=== PATIENT | male | born 1985 | race Caucasian/White ===

== ENCOUNTER 2019-02-23 11:01 | Inpatient (IN) | payer OTHER ==
[~2019-02-23] VITALS: Ht 200.7 cm; Wt 104.5 kg
[2019-02-23 11:41] LABS: BASOPHILS % (AUTO) 0.5 % (0.0-2.0); EOSINOPHILS % (AUTO) 0.8 % (1.0-6.0); HEMOGLOBIN 13.9 g/dL (13.5-17.5); LYMPHOCYTES # (AUTO) 1.9 K/uL (1.0-4.8); LYMPHOCYTES % (AUTO) 20.5 % (22.0-44.0); MEAN CORPUSCULAR HEMOGLOBIN 28.5 pg (26.0-34.0); MEAN CORPUSCULAR HGB CONC 33.9 G/dL (31.0-37.0); MEAN CORPUSCULAR VOLUME 84 fL (80-100); MONOCYTES # (AUTO) 0.7 K/uL (0.1-1.0); MONOCYTES % (AUTO) 7.2 % (2.0-9.0); NEUTROPHILS # (AUTO) 6.5 K/uL (1.8-7.7); PLATELET COUNT (AUTO) 386 K/uL (150-450); RED BLOOD CELL COUNT(AUTO) 4.88 MIL/uL (4.50-5.90)
[2019-02-23 11:47] LABS: ANION GAP 8 mmol/L (8-16); CALCIUM, TOTAL 9.1 mg/dL (8.8-10.5); CARBON DIOXIDE 28 mmol/L (22-29); CHLORIDE 104 mmol/L (98-107); GLOMERULAR FILTR. RATE CALC > 60 mL/min (>60); GLUCOSE,RANDOM 95 mg/dL (70-110); POTASSIUM 4.2 mmol/L (3.5-5.1); SODIUM SERUM 140 mmol/L (136-145); UREA NITROGEN, BLOOD 8 mg/dL (7-18)
[2019-02-23 11:49] LABS: AMPHET/METH SCREEN,URINE NEGATIVE (NEGATIVE); BARBITURATE SCREEN, URINE NEGATIVE (NEGATIVE); BENZODIAZEPINES SCREEN,URINE NEGATIVE (NEGATIVE); CANNABINOID SCREEN,URINE POSITIVE (NEGATIVE); COCAINE SCREEN,URINE NEGATIVE (NEGATIVE); METHADONE SCREEN, URINE NEGATIVE (NEGATIVE); OPIATE SCREEN,URINE NEGATIVE (NEGATIVE); PHENCYCLIDINE SCREEN,URINE NEGATIVE (NEGATIVE)
[2019-02-23 11:53] LABS: ALANINE AMINOTRANSFERASE 62 U/L (12-78); ALBUMIN 3.1 g/dL (3.4-5.0); ALKALINE PHOSPHATASE 111 U/L (46-116); ASPARTATE AMINOTRANSFERASE 38 U/L (15-37); BILIRUBIN,TOTAL 0.5 mg/dL (0.1-1.0); TOTAL PROTEIN, SERUM 7.6 g/dL (6.4-8.2)
[2019-02-23] MEDS ORDERED: SULFAMETHOX/TRIMETH DS 800-160 MG/TABLET PO ONE (12:30)
[2019-02-23] MEDS ORDERED: 0.9% SODIUM CHLORIDE 10 ML SYRINGE IVP PRN (12:45)
[2019-02-23] MEDS ORDERED: ACETAMINOPHEN 325 MG TABLET PO PRN (12:45)
[2019-02-23] MEDS ORDERED: GuaiFENesin/D-METHORPHAN [SUGAR-FREE] 200-20MG/10 ML SYRUP UDCUP PO PRN (13:00)
[2019-02-23] MEDS ORDERED: LOPERAMIDE HCL 2 MG CAPSULE PO PRN (13:00)
[2019-02-23] MEDS ORDERED: CloNIDine HCL 0.1 MG TABLET PO PRN (13:00)
[2019-02-23] MEDS ORDERED: ONDANSETRON HCL 4 MG TABLET PO PRN (13:00)
[2019-02-23] MEDS ORDERED: IBUPROFEN 400 MG TABLET PO PRN (13:00)
[2019-02-23] MEDS ORDERED: MAGNESIUM HYDROXIDE SUSPENSION 30 ML UDCUP PO PRN (13:00)
[2019-02-23] MEDS ORDERED: NICOTINE 14 MG/24 HOUR PATCH TD PRN (13:00)
[2019-02-23] MEDS ORDERED: MAG HYDROX/AL HYDROX/SIMETH ES 30 ML SUSPENSION UDCUP PO PRN (13:00)
[2019-02-23] MEDS ORDERED: ALBUTEROL SULFATE HFA 90 MCG/PUFF 8 GM INHALER IH PRN (13:00)
[2019-02-23] MEDS ORDERED: PETROLATUM,WHITE 28 GM JELLY TP PRN (13:00)
[2019-02-23 13:32] VITALS: BP 129/79
[2019-02-23 16:00] VITALS: BP 139/82
[2019-02-23] MEDS ORDERED: DiphenhydrAMINE HCL 50 MG/ML VIAL IM ONE (16:15)
[2019-02-23] MEDS ORDERED: LORazepam 2 MG/ML VIAL ONE (16:15)
[2019-02-23] MEDS ORDERED: HALOPERIDOL LACTATE 5 MG/ML VIAL IM ONE (16:15)
[2019-02-23] MEDS ORDERED: HALOPERIDOL LACTATE 5 MG/ML VIAL ONE (16:15)
[2019-02-23] MEDS ORDERED: DiphenhydrAMINE HCL 50 MG/ML VIAL ONE (16:15)
[2019-02-23] MEDS ORDERED: LORazepam 2 MG/ML VIAL IM ONE (16:15)
[2019-02-23] MEDS: CEPHALEXIN MONOHYDRATE 500 MG CAPSULE PO SCH ×2 (16:23→23:16)
[2019-02-23 17:39] LABS: APPEARANCE,URINE CLEAR (CLEAR); BILIRUBIN,URINE NEGATIVE (NEGATIVE); GLUCOSE, URINE (UA) NEGATIVE (NEGATIVE); KETONES,URINE NEGATIVE (NEGATIVE); LEUKOCYTE ESTERASE ,URINE NEGATIVE (NEGATIVE); NITRATE,URINE NEGATIVE (NEGATIVE); OCCULT BLOOD,URINE NEGATIVE (NEGATIVE); PH,URINE 7.5 (5.0-8.0); PROTEIN,URINE NEGATIVE (NEGATIVE)
[2019-02-23 17:44] LABS: AMPHET/METH SCREEN,URINE NEGATIVE (NEGATIVE); BARBITURATE SCREEN, URINE NEGATIVE (NEGATIVE); BENZODIAZEPINES SCREEN,URINE NEGATIVE (NEGATIVE); CANNABINOID SCREEN,URINE NEGATIVE (NEGATIVE); COCAINE SCREEN,URINE NEGATIVE (NEGATIVE); METHADONE SCREEN, URINE NEGATIVE (NEGATIVE); OPIATE SCREEN,URINE NEGATIVE (NEGATIVE)
[2019-02-23 17:45] LABS: PHENCYCLIDINE SCREEN,URINE NEGATIVE (NEGATIVE)
[2019-02-23] MEDS ORDERED: PNEUMOCOCCAL VACCINE POLYVALENT 0.5 ML VIAL [PPSV23] IM ONE (18:30)
[2019-02-23] MEDS ORDERED: INFLUENZA VIRUS VACCINE QVS 2019-20 (3YR+)/PF 60 MCG/0.5 ML SYRINGE IM ONE (18:30)
[2019-02-23 19:40] VITALS: BP 127/80
[2019-02-23] MEDS: SULFAMETHOX/TRIMETH DS 800-160 MG/TABLET PO SCH (20:28)
[2019-02-23 23:19] VITALS: BP 120/74
[2019-02-24 05:34] LABS: BASOPHILS % (AUTO) 0.5 % (0.0-2.0); EOSINOPHILS % (AUTO) 3.3 % (1.0-6.0); HEMATOCRIT 41.8 % (41-53); HEMOGLOBIN 13.8 g/dL (13.5-17.5); LYMPHOCYTES # (AUTO) 3.4 K/uL (1.0-4.8); LYMPHOCYTES % (AUTO) 28.5 % (22.0-44.0); MEAN CORPUSCULAR HEMOGLOBIN 27.8 pg (26.0-34.0); MEAN CORPUSCULAR HGB CONC 32.9 G/dL (31.0-37.0); MEAN CORPUSCULAR VOLUME 84 fL (80-100); MONOCYTES # (AUTO) 1.1 K/uL (0.1-1.0); MONOCYTES % (AUTO) 9.5 % (2.0-9.0); NEUTROPHILS % (AUTO) 58.2 % (40.0-70.0); PLATELET COUNT (AUTO) 371 K/uL (150-450); RED BLOOD CELL COUNT(AUTO) 4.96 MIL/uL (4.50-5.90); RED CELL DISTRIBUTION WIDTH 14.4 % (11.5-14.5)
[2019-02-24 05:39] VITALS: BP 105/62
[2019-02-24 05:50] LABS: HEMOGLOBIN A1C 5.7 % (4.5-6.2)
[2019-02-24 05:56] LABS: ALANINE AMINOTRANSFERASE 57 U/L (12-78); ALBUMIN 2.7 g/dL (3.4-5.0); ALKALINE PHOSPHATASE 109 U/L (46-116); ANION GAP 9 mmol/L (8-16); ASPARTATE AMINOTRANSFERASE 27 U/L (15-37); BILIRUBIN,TOTAL 0.3 mg/dL (0.1-1.0); CALCIUM, TOTAL 8.6 mg/dL (8.8-10.5); CARBON DIOXIDE 25 mmol/L (22-29); CHLORIDE 105 mmol/L (98-107); CHOL/HDL RATIO 5.1 (4.2-7.3); CHOLESTEROL 184 mg/dL (131-200); CREATININE 1.12 mg/dL (0.60-1.30); GLOMERULAR FILTR. RATE CALC > 60 mL/min (>60); GLUCOSE,RANDOM 105 mg/dL (70-110); HDL CHOLESTEROL 36 mg/dL (40-60); LDL CHOL (CALC.) 124 mg/dL (0-130); POTASSIUM 3.6 mmol/L (3.5-5.1); SODIUM SERUM 139 mmol/L (136-145); TRIGLYCERIDES 119 mg/dL (15-150); UREA NITROGEN, BLOOD 9 mg/dL (7-18)
[2019-02-24 07:42] VITALS: BP 125/60
[2019-02-24] MEDS: SULFAMETHOX/TRIMETH DS 800-160 MG/TABLET PO SCH (09:37)
[2019-02-24] MEDS: CEPHALEXIN MONOHYDRATE 500 MG CAPSULE PO SCH (09:37)
[2019-02-24 10:34] VITALS: BP_SYST 114; BP_SYST 122; BP_DIAS 59; BP_DIAS 71
[2019-02-24] MEDS: HALOPERIDOL 2 MG TABLET PO PRN ×2 (11:25→19:38)
[2019-02-24] MEDS ORDERED: LORazepam 2 MG/ML VIAL IVP ONE (13:45)
[2019-02-24] MEDS ORDERED: SODIUM CHLORIDE 0.9% 500 ML IV ONE (13:49)
[2019-02-24] MEDS: PIPERACILLIN/TAZO 3.375 GM/D5W 50 ML IV SCH ×2 (14:26→19:38)
[2019-02-24] MEDS ORDERED: VANCOMYCIN HCL 1.5 GM in DEXTROSE 5%-WATER 250 ML IV ONE (16:00)
[2019-02-24] MEDS ORDERED: LORazepam 2 MG/ML VIAL IM ONE (16:00)
[2019-02-24] MEDS ORDERED: DiphenhydrAMINE HCL 50 MG/ML VIAL IM ONE (16:00)
[2019-02-24] MEDS ORDERED: HALOPERIDOL LACTATE 5 MG/ML VIAL IM ONE (16:00)
[2019-02-24] MEDS ORDERED: HALOPERIDOL LACTATE 5 MG/ML VIAL ONE (16:01)
[2019-02-24] MEDS ORDERED: DiphenhydrAMINE HCL 50 MG/ML VIAL ONE (16:01)
[2019-02-24 16:24] VITALS: BP 142/66
[2019-02-24 19:11] VITALS: BP 110/59
[2019-02-24] MEDS: VANCOMYCIN HCL 1.25 GM in DEXTROSE 5%-WATER 250 ML IV SCH (23:06)
[2019-02-25] MEDS: PIPERACILLIN/TAZO 3.375 GM/D5W 50 ML IV SCH ×4 (02:28→20:25)
[2019-02-25] MEDS: VANCOMYCIN HCL 1.25 GM in DEXTROSE 5%-WATER 250 ML IV SCH ×3 (06:04→22:59)
[2019-02-25 07:16] VITALS: BP 119/69
[2019-02-25 11:15] VITALS: BP 119/53
[2019-02-25] MEDS: OLANZapine 5 MG TABLET PO SCH ×2 (11:19→20:25)
[2019-02-25 15:32] VITALS: BP 112/60
[2019-02-25] MEDS: HALOPERIDOL 2 MG TABLET PO PRN ×2 (18:35→23:05)
[2019-02-25 19:43] VITALS: BP 112/61
[2019-02-25 23:02] VITALS: BP 113/58
[2019-02-26] MEDS: PIPERACILLIN/TAZO 3.375 GM/D5W 50 ML IV SCH ×4 (02:08→20:28)
[2019-02-26 05:00] VITALS: BP 127/78
[2019-02-26] MEDS: VANCOMYCIN HCL 1.25 GM in DEXTROSE 5%-WATER 250 ML IV SCH (06:49)
[2019-02-26 07:22] LABS: BASOPHILS % (AUTO) 0.5 % (0.0-2.0); EOSINOPHILS % (AUTO) 2.6 % (1.0-6.0); HEMATOCRIT 41.3 % (41-53); HEMOGLOBIN 14.1 g/dL (13.5-17.5); LYMPHOCYTES # (AUTO) 2.6 K/uL (1.0-4.8); MEAN CORPUSCULAR HEMOGLOBIN 28.8 pg (26.0-34.0); MEAN CORPUSCULAR VOLUME 85 fL (80-100); MONOCYTES # (AUTO) 1.3 K/uL (0.1-1.0); MONOCYTES % (AUTO) 12.6 % (2.0-9.0); NEUTROPHILS # (AUTO) 6.1 K/uL (1.8-7.7); NEUTROPHILS % (AUTO) 59.3 % (40.0-70.0); PLATELET COUNT (AUTO) 379 K/uL (150-450); RED BLOOD CELL COUNT(AUTO) 4.87 MIL/uL (4.50-5.90); RED CELL DISTRIBUTION WIDTH 14.1 % (11.5-14.5)
[2019-02-26 07:38] VITALS: BP 113/72
[2019-02-26 07:42] LABS: CALCIUM, TOTAL 8.8 mg/dL (8.8-10.5); CREATININE 1.96 mg/dL (0.60-1.30); POTASSIUM 4.1 mmol/L (3.5-5.1)
[2019-02-26 08:02] LABS: VANCOMYCIN,RANDOM 30.7 mcg/mL (25.0-50.0)
[2019-02-26] MEDS ORDERED: SODIUM CHLORIDE 0.45% 1,000 ML IV ONE (08:30)
[2019-02-26] MEDS: OLANZapine 5 MG TABLET PO SCH ×2 (09:09→20:28)
[2019-02-26 11:16] VITALS: BP 121/72
[2019-02-26] MEDS: HALOPERIDOL 2 MG TABLET PO PRN ×3 (11:46→23:00)
[2019-02-26 15:24] VITALS: BP 125/72
[2019-02-26 19:35] VITALS: BP 105/63
[2019-02-27] MEDS: PIPERACILLIN/TAZO 3.375 GM/D5W 50 ML IV SCH ×4 (01:49→20:21)
[2019-02-27 04:38] VITALS: BP 106/60
[2019-02-27] MEDS: OLANZapine 5 MG TABLET PO SCH (08:07)
[2019-02-27] MEDS: VANCOMYCIN HCL 1 GM/D5% WATER 200 ML IV SCH ×2 (08:40→20:59)
[2019-02-27 10:59] LABS: CALCIUM, TOTAL 8.7 mg/dL (8.8-10.5); CREATININE 2.05 mg/dL (0.60-1.30)
[2019-02-27 11:39] VITALS: BP 113/59
[2019-02-27 11:48] LABS: BASOPHILS % (AUTO) 0.6 % (0.0-2.0); HEMOGLOBIN 14.3 g/dL (13.5-17.5); LYMPHOCYTES # (AUTO) 2.7 K/uL (1.0-4.8); LYMPHOCYTES % (AUTO) 29.5 % (22.0-44.0); MEAN CORPUSCULAR HEMOGLOBIN 28.1 pg (26.0-34.0); MEAN CORPUSCULAR HGB CONC 33.2 G/dL (31.0-37.0); MEAN CORPUSCULAR VOLUME 85 fL (80-100); MONOCYTES # (AUTO) 1.1 K/uL (0.1-1.0); MONOCYTES % (AUTO) 11.7 % (2.0-9.0); NEUTROPHILS # (AUTO) 5.2 K/uL (1.8-7.7); NEUTROPHILS % (AUTO) 56.2 % (40.0-70.0); PLATELET COUNT (AUTO) 348 K/uL (150-450); RED BLOOD CELL COUNT(AUTO) 5.07 MIL/uL (4.50-5.90)
[2019-02-27] MEDS: HALOPERIDOL 2 MG TABLET PO PRN ×2 (13:10→19:04)
[2019-02-27 17:33] VITALS: BP 105/57
[2019-02-27 19:46] VITALS: BP 106/59
[2019-02-27] MEDS: DIVALPROEX SODIUM 500 MG DR TABLET PO SCH (20:21)
[2019-02-27] MEDS: OLANZapine 7.5 MG TABLET PO SCH (20:22)
[2019-02-27] MEDS: AMOX TR/POT CLAV 500 MG/125 MG TABLET PO SCH (22:00)
[2019-02-27] MEDS: CIPROFLOXACIN HCL 250 MG TABLET PO SCH (22:00)
[2019-02-28 02:13] VITALS: BP 116/70
[2019-02-28 04:44] VITALS: BP 105/61
[2019-02-28 07:46] VITALS: BP 108/69
[2019-02-28] MEDS: AMOX TR/POT CLAV 500 MG/125 MG TABLET PO SCH ×2 (08:02→21:35)
[2019-02-28] MEDS: CIPROFLOXACIN HCL 250 MG TABLET PO SCH ×3 (08:02→21:35)
[2019-02-28] MEDS: DOCUSATE SODIUM 100 MG CAPSULE PO PRN (08:02)
[2019-02-28] MEDS: DIVALPROEX SODIUM 500 MG DR TABLET PO SCH ×2 (08:02→21:35)
[2019-02-28] MEDS ORDERED: SODIUM CHLORIDE 0.9% 1,000 ML IV ONE (08:45)
[2019-02-28 09:00] LABS: CALCIUM, TOTAL 8.9 mg/dL (8.8-10.5); CREATININE 1.68 mg/dL (0.60-1.30); POTASSIUM 4.2 mmol/L (3.5-5.1); VANCOMYCIN,RANDOM 10.6 mcg/mL (25.0-50.0)
[2019-02-28 11:40] VITALS: BP 113/80
[2019-02-28] MEDS: HALOPERIDOL 2 MG TABLET PO PRN ×2 (14:36→18:22)
[2019-02-28] MEDS: OLANZapine 7.5 MG TABLET PO SCH ×2 (14:36→23:45)
[2019-02-28 15:54] VITALS: BP 124/68
[2019-02-28 19:40] VITALS: BP 116/72
[2019-02-28] MEDS: SULFAMETHOX/TRIMETH DS 800-160 MG/TABLET PO SCH (21:35)
[2019-03-01] MEDS: OLANZapine 7.5 MG TABLET PO SCH ×3 (08:50→20:38)
[2019-03-01] MEDS: CIPROFLOXACIN HCL 250 MG TABLET PO SCH ×3 (08:50→20:38)
[2019-03-01] MEDS: AMOX TR/POT CLAV 500 MG/125 MG TABLET PO SCH ×3 (08:51→20:38)
[2019-03-01] MEDS: SULFAMETHOX/TRIMETH DS 800-160 MG/TABLET PO SCH ×3 (08:51→20:38)
[2019-03-01] MEDS: DIVALPROEX SODIUM 500 MG DR TABLET PO SCH ×3 (08:51→20:38)
[2019-03-01] MEDS: ACETAMINOPHEN 325 MG TABLET PO PRN (11:32)
[2019-03-01 11:57] VITALS: BP 116/63
[2019-03-01] MEDS ORDERED: SODIUM CHLORIDE 0.9% 1,000 ML IV ONE (12:00)
[2019-03-01 13:36] LABS: BASOPHILS % (AUTO) 0.8 % (0.0-2.0); EOSINOPHILS % (AUTO) 1.5 % (1.0-6.0); HEMATOCRIT 42.3 % (41-53); HEMOGLOBIN 14.3 g/dL (13.5-17.5); LYMPHOCYTES # (AUTO) 2.6 K/uL (1.0-4.8); MEAN CORPUSCULAR HEMOGLOBIN 28.9 pg (26.0-34.0); MEAN CORPUSCULAR HGB CONC 33.8 G/dL (31.0-37.0); MEAN CORPUSCULAR VOLUME 86 fL (80-100); MONOCYTES # (AUTO) 0.8 K/uL (0.1-1.0); MONOCYTES % (AUTO) 8.5 % (2.0-9.0); NEUTROPHILS # (AUTO) 5.7 K/uL (1.8-7.7); NEUTROPHILS % (AUTO) 61.2 % (40.0-70.0); PLATELET COUNT (AUTO) 336 K/uL (150-450); RED BLOOD CELL COUNT(AUTO) 4.94 MIL/uL (4.50-5.90); RED CELL DISTRIBUTION WIDTH 14.3 % (11.5-14.5)
[2019-03-01 14:10] LABS: CALCIUM, TOTAL 9.1 mg/dL (8.8-10.5); CREATININE 1.79 mg/dL (0.60-1.30); POTASSIUM 4.7 mmol/L (3.5-5.1)
[2019-03-01 16:07] VITALS: BP 104/55
[2019-03-01] MEDS: HALOPERIDOL 2 MG TABLET PO PRN ×2 (18:30→22:30)
[2019-03-01 20:21] VITALS: BP 133/71
[2019-03-02] MEDS: AMOX TR/POT CLAV 500 MG/125 MG TABLET PO SCH (08:52)
[2019-03-02] MEDS: DIVALPROEX SODIUM 500 MG DR TABLET PO SCH (08:52)
[2019-03-02] MEDS: OLANZapine 7.5 MG TABLET PO SCH ×2 (08:52→20:51)
[2019-03-02] MEDS: SULFAMETHOX/TRIMETH DS 800-160 MG/TABLET PO SCH (08:52)
[2019-03-02] MEDS: CIPROFLOXACIN HCL 250 MG TABLET PO SCH (08:52)
[2019-03-02] MEDS: DEXTROSE 5%-0.45% SODIUM CHL 1,000 ML IV SCH ×2 (10:00→15:00)
[2019-03-02 15:35] VITALS: BP 129/76
[2019-03-02] MEDS: HALOPERIDOL 2 MG TABLET PO PRN (16:51)
[2019-03-02 19:40] VITALS: BP 126/77
[2019-03-02] MEDS: ACETAMINOPHEN 325 MG TABLET PO PRN (20:07)
[2019-03-02] MEDS: DOCUSATE SODIUM 100 MG CAPSULE PO PRN (20:51)
[2019-03-02] MEDS: DIVALPROEX SODIUM 250 MG DR TABLET PO SCH (20:59)
[2019-03-03 00:25] VITALS: BP 128/77
[2019-03-03] MEDS: HALOPERIDOL 2 MG TABLET PO PRN ×2 (00:29→23:24)
[2019-03-03 15:26] VITALS: BP 130/77
[2019-03-03 20:10] VITALS: BP 139/79
[2019-03-03] MEDS: OLANZapine 7.5 MG TABLET PO SCH (20:18)
[2019-03-03] MEDS: DIVALPROEX SODIUM 250 MG DR TABLET PO SCH (20:19)
[2019-03-03 23:15] VITALS: BP 124/72
[2019-03-04 06:46] VITALS: BP 119/63
[2019-03-04] MEDS ORDERED: MULTIVITAMINS WITH MINERALS, THERAPEUTIC TABLET PO SCH (09:00)
[2019-03-04 11:05] VITALS: BP 142/79
[2019-03-04] MEDS ORDERED: DIVA-76 PO (11:40)
[2019-03-04] MEDS ORDERED: OLAN7.5T2 PO (11:43)
== END 2019-03-04 14:50 | DRG 603 ==
LOC: EMS 11:05 → 6S 12:22
PROVIDERS: ADMIT Internal Medicine; ATTEND Internal Medicine
DX: L03.114 Cellulitis of left upper limb (principal); R45.851 Suicidal ideations; F25.9 Schizoaffective disorder, unspecified; B19.20 Unspecified viral hepatitis C without hepatic coma; Z53.20 Procedure and treatment not carried out because of patient's decision for unspecified reasons; Z91.5 Personal history of self-harm; H60.11 Cellulitis of right external ear
CPT/HCPCS: 80307; 83036; 84443; 90686; 90732; 96372; G0480; J1200; J1630; J2060; J2543; J3370; J7030; J7040; J7060; Q0162

== ENCOUNTER 2019-09-07 20:52 | Inpatient (IN) | payer OTHER ==
[~2019-09-07] VITALS: Ht 170.2 cm; Wt 100.0 kg
[~2019-09-07 20:52] MED LIST: DIVA-76 PO; FLUP1TAB8 PO; MIRT-89 PO; OLAN7.5T2 PO; SERT50TA12 PO
[2019-09-07] MEDS ORDERED: LORA10TA7 PO (22:09)
[2019-09-07] MEDS ORDERED: NAPR250T4 PO (22:09)
[2019-09-07 22:34] LABS: BASOPHILS % (AUTO) 0.7 % (0.0-2.0); EOSINOPHILS % (AUTO) 0.8 % (1.0-6.0); HEMATOCRIT 42.3 % (41-53); LYMPHOCYTES # (AUTO) 4.3 K/uL (1.0-4.8); LYMPHOCYTES % (AUTO) 43.6 % (22.0-44.0); MEAN CORPUSCULAR HEMOGLOBIN 29.7 pg (26.0-34.0); MEAN CORPUSCULAR VOLUME 90 fL (80-100); MONOCYTES # (AUTO) 0.9 K/uL (0.1-1.0); MONOCYTES % (AUTO) 8.8 % (2.0-9.0); NEUTROPHILS # (AUTO) 4.5 K/uL (1.8-7.7); NEUTROPHILS % (AUTO) 46.1 % (40.0-70.0); PLATELET COUNT (AUTO) 217 K/uL (150-450); RED CELL DISTRIBUTION WIDTH 14.2 % (11.5-14.5)
[2019-09-07] MEDS ORDERED: PERTUSS(ACELL),DIPH,TET VAC/PF 0.5 ML VIAL IM ONE (22:45)
[2019-09-07 22:55] LABS: ANION GAP 8 mmol/L (8-16); CALCIUM, TOTAL 8.9 mg/dL (8.8-10.5); CARBON DIOXIDE 27 mmol/L (22-29); CHLORIDE 102 mmol/L (98-107); CREATININE 1.08 mg/dL (0.60-1.30); GLOMERULAR FILTR. RATE CALC > 60 mL/min (>60); GLUCOSE,RANDOM 88 mg/dL (70-110); POTASSIUM 4.2 mmol/L (3.5-5.1); SODIUM SERUM 137 mmol/L (136-145); UREA NITROGEN, BLOOD 19 mg/dL (7-18)
[2019-09-07 23:00] LABS: AMPHET/METH SCREEN,URINE NEGATIVE (NEGATIVE); BARBITURATE SCREEN, URINE NEGATIVE (NEGATIVE); BENZODIAZEPINES SCREEN,URINE NEGATIVE (NEGATIVE); CANNABINOID SCREEN,URINE NEGATIVE (NEGATIVE); COCAINE SCREEN,URINE NEGATIVE (NEGATIVE); METHADONE SCREEN, URINE NEGATIVE (NEGATIVE); OPIATE SCREEN,URINE NEGATIVE (NEGATIVE)
[2019-09-07 23:02] LABS: ACETAMINOPHEN < 2 mcg/mL (10-30); ALANINE AMINOTRANSFERASE 159 U/L (12-78); ALBUMIN 3.8 g/dL (3.4-5.0); ALKALINE PHOSPHATASE 107 U/L (46-116); ASPARTATE AMINOTRANSFERASE 62 U/L (15-37); BILIRUBIN,TOTAL 0.7 mg/dL (0.1-1.0); TOTAL PROTEIN, SERUM 7.4 g/dL (6.4-8.2)
[2019-09-07 23:03] LABS: PHENCYCLIDINE SCREEN,URINE NEGATIVE (NEGATIVE)
[2019-09-07] MEDS ORDERED: CloNIDine HCL 0.1 MG TABLET PO PRN (23:15)
[2019-09-07] MEDS ORDERED: MAGNESIUM HYDROXIDE SUSPENSION 30 ML UDCUP PO PRN (23:15)
[2019-09-07] MEDS ORDERED: PETROLATUM,WHITE 28 GM JELLY TP PRN (23:15)
[2019-09-07] MEDS ORDERED: IBUPROFEN 400 MG TABLET PO PRN (23:15)
[2019-09-07] MEDS ORDERED: SODIUM CHLORIDE 0.9% 1,000 ML IV ONE (23:15)
[2019-09-07] MEDS ORDERED: GuaiFENesin/D-METHORPHAN [SUGAR-FREE] 200-20MG/10 ML SYRUP UDCUP PO PRN (23:15)
[2019-09-07] MEDS ORDERED: ONDANSETRON HCL 4 MG/2 ML VIAL IVP PRN (23:15)
[2019-09-07] MEDS ORDERED: NICOTINE 14 MG/24 HOUR PATCH TD PRN (23:15)
[2019-09-07] MEDS ORDERED: MAG HYDROX/AL HYDROX/SIMETH ES 30 ML SUSPENSION UDCUP PO PRN (23:15)
[2019-09-07] MEDS ORDERED: DOCUSATE SODIUM 100 MG CAPSULE PO PRN (23:15)
[2019-09-07] MEDS ORDERED: ONDANSETRON HCL 4 MG TABLET PO PRN (23:15)
[2019-09-07] MEDS ORDERED: ALBUTEROL SULFATE HFA 90 MCG/PUFF 8 GM INHALER IH PRN (23:15)
[2019-09-07] MEDS ORDERED: ACETAMINOPHEN 325 MG TABLET PO PRN ×2 (23:15)
[2019-09-07] MEDS ORDERED: LOPERAMIDE HCL 2 MG CAPSULE PO PRN (23:15)
[2019-09-07] MEDS ORDERED: 0.9% SODIUM CHLORIDE 10 ML SYRINGE IVP PRN (23:15)
[2019-09-07 23:28] LABS: SALICYLATE < 2.8 mg/dL (2.8-20.0)
[2019-09-08] MEDS: AMOX TR/POT CLAV 875 MG/125 MG TABLET PO ONE ×2 (05:27→05:52)
[2019-09-08 05:37] VITALS: BP 145/88
[2019-09-08] MEDS: SODIUM CHLORIDE 0.9% 1,000 ML IV SCH ×2 (05:41→20:32)
[2019-09-08 06:56] LABS: BASOPHILS % (AUTO) 0.3 % (0.0-2.0); EOSINOPHILS % (AUTO) 1.9 % (1.0-6.0); HEMATOCRIT 40.8 % (41-53); HEMOGLOBIN 13.9 g/dL (13.5-17.5); LYMPHOCYTES # (AUTO) 4.4 K/uL (1.0-4.8); LYMPHOCYTES % (AUTO) 42.6 % (22.0-44.0); MEAN CORPUSCULAR HEMOGLOBIN 30.5 pg (26.0-34.0); MEAN CORPUSCULAR VOLUME 90 fL (80-100); MONOCYTES # (AUTO) 0.9 K/uL (0.1-1.0); NEUTROPHILS # (AUTO) 4.8 K/uL (1.8-7.7); NEUTROPHILS % (AUTO) 46.2 % (40.0-70.0); PLATELET COUNT (AUTO) 231 K/uL (150-450); RED BLOOD CELL COUNT(AUTO) 4.55 MIL/uL (4.50-5.90); RED CELL DISTRIBUTION WIDTH 13.7 % (11.5-14.5)
[2019-09-08 07:19] LABS: ALANINE AMINOTRANSFERASE 148 U/L (12-78); ALBUMIN 3.3 g/dL (3.4-5.0); ALKALINE PHOSPHATASE 102 U/L (46-116); ANION GAP 8 mmol/L (8-16); ASPARTATE AMINOTRANSFERASE 57 U/L (15-37); BILIRUBIN,TOTAL 0.7 mg/dL (0.1-1.0); CALCIUM, TOTAL 8.4 mg/dL (8.8-10.5); CARBON DIOXIDE 27 mmol/L (22-29); CHLORIDE 103 mmol/L (98-107); CREATININE 1.07 mg/dL (0.60-1.30); GLOMERULAR FILTR. RATE CALC > 60 mL/min (>60); GLUCOSE,RANDOM 109 mg/dL (70-110); POTASSIUM 3.7 mmol/L (3.5-5.1); SODIUM SERUM 138 mmol/L (136-145); TOTAL PROTEIN, SERUM 6.7 g/dL (6.4-8.2); UREA NITROGEN, BLOOD 16 mg/dL (7-18)
[2019-09-08 07:46] VITALS: BP 147/82
[2019-09-08 11:37] VITALS: BP 146/80
[2019-09-08] MEDS: BuPROPion HCL 150 MG SR TABLET PO SCH (12:19)
[2019-09-08] MEDS: OLANZapine 5 MG TABLET PO SCH ×2 (12:19→20:31)
[2019-09-08 15:14] VITALS: BP 133/73
[2019-09-08 19:32] VITALS: BP 139/77
[2019-09-09 05:35] VITALS: BP 111/69
[2019-09-09 07:29] VITALS: BP 122/64
[2019-09-09] MEDS: SODIUM CHLORIDE 0.9% 1,000 ML IV SCH ×2 (08:01→20:43)
[2019-09-09] MEDS: BuPROPion HCL 150 MG SR TABLET PO SCH (08:02)
[2019-09-09] MEDS: OLANZapine 5 MG TABLET PO SCH ×2 (08:02→20:42)
[2019-09-09 15:20] VITALS: BP 134/76
[2019-09-09] MEDS: SERTRALINE HCL 50 MG TABLET PO SCH (16:48)
[2019-09-09 20:32] VITALS: BP 138/93
[2019-09-10 03:09] VITALS: BP 142/93
[2019-09-10 07:09] VITALS: BP 136/95
[2019-09-10] MEDS: OLANZapine 5 MG TABLET PO SCH (08:13)
[2019-09-10] MEDS: SERTRALINE HCL 50 MG TABLET PO SCH (08:13)
[2019-09-10] MEDS: SODIUM CHLORIDE 0.9% 1,000 ML IV SCH (10:50)
[2019-09-10] MEDS ORDERED: SERT50TA12 PO (13:08)
[2019-09-10] MEDS ORDERED: OLAN5TAB2 PO (13:08)
[2019-09-10 16:06] VITALS: BP 153/95
== END 2019-09-10 17:24 | DRG 880 ==
LOC: EMS 20:52 → 6S 23:00 → UNDOADMIN 23:00 → 6S 23:08
PROVIDERS: ADMIT Internal Medicine; ATTEND Internal Medicine
DX: R45.851 Suicidal ideations (principal); E44.0 Moderate protein-calorie malnutrition; Z87.891 Personal history of nicotine dependence; B18.2 Chronic viral hepatitis C; Z68.34 Body mass index [BMI] 34.0-34.9, adult; W57.XXXA Bitten or stung by nonvenomous insect and other nonvenomous arthropods, initial encounter; Y93.89 Activity, other specified; Y92.89 Other specified places as the place of occurrence of the external cause; Y99.8 Other external cause status
CPT/HCPCS: 80074; 90715; G0480; G0481; J7030

== ENCOUNTER 2019-09-12 18:44 | Inpatient (IN) | payer OTHER ==
[~2019-09-12] VITALS: Ht 170.2 cm; Wt 100.2 kg
[~2019-09-12 18:44] MED LIST changes: +LORA10TA7 PO; +OLAN5TAB2 PO; -OLAN7.5T2 PO
[2019-09-12] MEDS ORDERED: AMOX TR/POT CLAV 875 MG/125 MG TABLET PO ONE (19:00)
[2019-09-12] MEDS ORDERED: BACITRACIN 0.9 GM PACKET OINTMENT TP ONE (19:00)
[2019-09-12 19:26] LABS: BASOPHILS % (AUTO) 0.3 % (0.0-2.0); EOSINOPHILS % (AUTO) 1.3 % (1.0-6.0); HEMATOCRIT 48.4 % (41-53); HEMOGLOBIN 16.5 g/dL (13.5-17.5); LYMPHOCYTES % (AUTO) 29.1 % (22.0-44.0); MEAN CORPUSCULAR HEMOGLOBIN 30.5 pg (26.0-34.0); MEAN CORPUSCULAR VOLUME 90 fL (80-100); MONOCYTES # (AUTO) 0.6 K/uL (0.1-1.0); MONOCYTES % (AUTO) 6.3 % (2.0-9.0); NEUTROPHILS # (AUTO) 6.4 K/uL (1.8-7.7); PLATELET COUNT (AUTO) 242 K/uL (150-450)
[2019-09-12 19:39] LABS: ANION GAP 6 mmol/L (8-16); CALCIUM, TOTAL 9.5 mg/dL (8.8-10.5); CARBON DIOXIDE 31 mmol/L (22-29); CHLORIDE 105 mmol/L (98-107); CREATININE 1.07 mg/dL (0.60-1.30); GLOMERULAR FILTR. RATE CALC > 60 mL/min (>60); GLUCOSE,RANDOM 131 mg/dL (70-110); POTASSIUM 4.2 mmol/L (3.5-5.1); SODIUM SERUM 142 mmol/L (136-145); UREA NITROGEN, BLOOD 16 mg/dL (7-18)
[2019-09-12 19:45] LABS: ALANINE AMINOTRANSFERASE 186 U/L (12-78); ALKALINE PHOSPHATASE 137 U/L (46-116); ASPARTATE AMINOTRANSFERASE 54 U/L (15-37); BILIRUBIN,TOTAL 0.7 mg/dL (0.1-1.0); TOTAL PROTEIN, SERUM 8.4 g/dL (6.4-8.2)
[2019-09-12] MEDS ORDERED: ONDANSETRON HCL 4 MG/2 ML VIAL IVP PRN ×2 (20:15→20:30)
[2019-09-12] MEDS ORDERED: 0.9% SODIUM CHLORIDE 10 ML SYRINGE IVP PRN ×2 (20:15→20:30)
[2019-09-12] MEDS ORDERED: ACETAMINOPHEN 325 MG TABLET PO PRN (20:15)
[2019-09-12] MEDS ORDERED: OLAN7.5T2 PO (20:17)
[2019-09-12] MEDS: FAMOTIDINE 10 MG/ML 2 ML VIAL IVP SCH (20:30)
[2019-09-12] MEDS: SERTRALINE HCL 50 MG TABLET PO SCH (21:37)
[2019-09-12] MEDS: OLANZapine 7.5 MG TABLET PO SCH (21:37)
[2019-09-12] MEDS: DOCUSATE SODIUM 100 MG CAPSULE PO SCH (21:56)
[2019-09-13 00:07] VITALS: BP 124/73
[2019-09-13 04:40] VITALS: BP 117/70
[2019-09-13 07:10] VITALS: BP 94/58
[2019-09-13] MEDS: DOCUSATE SODIUM 100 MG CAPSULE PO SCH ×2 (08:30→20:24)
[2019-09-13] MEDS: SERTRALINE HCL 50 MG TABLET PO SCH (08:30)
[2019-09-13] MEDS: FAMOTIDINE 10 MG/ML 2 ML VIAL IVP SCH (08:35)
[2019-09-13 08:41] LABS: BASOPHILS % (AUTO) 0.7 % (0.0-2.0); HEMOGLOBIN 15.6 g/dL (13.5-17.5); LYMPHOCYTES # (AUTO) 3.6 K/uL (1.0-4.8); LYMPHOCYTES % (AUTO) 38.9 % (22.0-44.0); MEAN CORPUSCULAR HEMOGLOBIN 29.8 pg (26.0-34.0); MEAN CORPUSCULAR HGB CONC 33.3 G/dL (31.0-37.0); MEAN CORPUSCULAR VOLUME 90 fL (80-100); MONOCYTES # (AUTO) 0.8 K/uL (0.1-1.0); MONOCYTES % (AUTO) 8.7 % (2.0-9.0); NEUTROPHILS # (AUTO) 4.7 K/uL (1.8-7.7); NEUTROPHILS % (AUTO) 49.7 % (40.0-70.0); PLATELET COUNT (AUTO) 256 K/uL (150-450); RED BLOOD CELL COUNT(AUTO) 5.24 MIL/uL (4.50-5.90); RED CELL DISTRIBUTION WIDTH 13.8 % (11.5-14.5)
[2019-09-13 08:51] LABS: ALANINE AMINOTRANSFERASE 165 U/L (12-78); ALBUMIN 3.5 g/dL (3.4-5.0); ALKALINE PHOSPHATASE 129 U/L (46-116); ANION GAP 8 mmol/L (8-16); ASPARTATE AMINOTRANSFERASE 55 U/L (15-37); BILIRUBIN,TOTAL 0.7 mg/dL (0.1-1.0); CALCIUM, TOTAL 8.8 mg/dL (8.8-10.5); CARBON DIOXIDE 26 mmol/L (22-29); CHLORIDE 103 mmol/L (98-107); CREATININE 1.04 mg/dL (0.60-1.30); GLOMERULAR FILTR. RATE CALC > 60 mL/min (>60); GLUCOSE,RANDOM 91 mg/dL (70-110); POTASSIUM 4.5 mmol/L (3.5-5.1); SODIUM SERUM 137 mmol/L (136-145); TOTAL PROTEIN, SERUM 7.5 g/dL (6.4-8.2); UREA NITROGEN, BLOOD 17 mg/dL (7-18)
[2019-09-13 15:50] VITALS: BP 136/86
[2019-09-13 19:39] VITALS: BP 122/74
[2019-09-13] MEDS: OLANZapine 7.5 MG TABLET PO SCH (20:24)
[2019-09-14 05:55] VITALS: BP 102/67
[2019-09-14] MEDS: FAMOTIDINE 10 MG/ML 2 ML VIAL IVP SCH ×2 (08:23→08:27)
[2019-09-14] MEDS: DOCUSATE SODIUM 100 MG CAPSULE PO SCH ×2 (08:23→20:26)
[2019-09-14] MEDS: SERTRALINE HCL 50 MG TABLET PO SCH (08:23)
[2019-09-14] MEDS: AMOX TR/POT CLAV 875 MG/125 MG TABLET PO SCH ×2 (08:23→20:26)
[2019-09-14 08:30] VITALS: BP 121/88
[2019-09-14 15:13] VITALS: BP 122/75
[2019-09-14 19:36] VITALS: BP 124/66
[2019-09-14] MEDS: OLANZapine 10 MG TABLET PO SCH (20:26)
[2019-09-15 08:00] VITALS: BP 121/65
[2019-09-15] MEDS: SERTRALINE HCL 50 MG TABLET PO SCH (08:10)
[2019-09-15] MEDS: AMOX TR/POT CLAV 875 MG/125 MG TABLET PO SCH ×2 (08:10→19:55)
[2019-09-15] MEDS: DOCUSATE SODIUM 100 MG CAPSULE PO SCH ×2 (08:10→19:55)
[2019-09-15] MEDS: FAMOTIDINE 20 MG TABLET PO SCH (09:15)
[2019-09-15 15:10] VITALS: BP 114/64
[2019-09-15] MEDS: OLANZapine 10 MG TABLET PO SCH (19:55)
[2019-09-15 20:20] VITALS: BP 126/78
[2019-09-16] MEDS: SERTRALINE HCL 50 MG TABLET PO SCH (08:25)
[2019-09-16] MEDS: DOCUSATE SODIUM 100 MG CAPSULE PO SCH ×2 (08:26→20:22)
[2019-09-16] MEDS: AMOX TR/POT CLAV 875 MG/125 MG TABLET PO SCH ×2 (08:26→20:22)
[2019-09-16] MEDS: FAMOTIDINE 20 MG TABLET PO SCH (08:26)
[2019-09-16] MEDS: MULTIVITAMINS, THERAPEUTIC TABLET PO SCH (08:26)
[2019-09-16 08:52] VITALS: BP 113/68
[2019-09-16 15:55] VITALS: BP 118/78
[2019-09-16 19:22] VITALS: BP 114/63
[2019-09-16] MEDS: OLANZapine 10 MG TABLET PO SCH (20:22)
[2019-09-17 04:19] VITALS: BP 100/58
[2019-09-17] MEDS: AMOX TR/POT CLAV 875 MG/125 MG TABLET PO SCH ×2 (08:12→20:31)
[2019-09-17] MEDS: DOCUSATE SODIUM 100 MG CAPSULE PO SCH ×3 (08:12→20:31)
[2019-09-17] MEDS: MULTIVITAMINS, THERAPEUTIC TABLET PO SCH (08:12)
[2019-09-17] MEDS: SERTRALINE HCL 50 MG TABLET PO SCH (08:12)
[2019-09-17] MEDS: FAMOTIDINE 20 MG TABLET PO SCH (08:12)
[2019-09-17 08:27] VITALS: BP 109/66
[2019-09-17 15:20] VITALS: BP 124/78
[2019-09-17 20:15] VITALS: BP 133/78
[2019-09-17] MEDS: OLANZapine 10 MG TABLET PO SCH (20:31)
[2019-09-18] MEDS: FAMOTIDINE 20 MG TABLET PO SCH (07:42)
[2019-09-18] MEDS: DOCUSATE SODIUM 100 MG CAPSULE PO SCH ×2 (07:42→19:47)
[2019-09-18] MEDS: SERTRALINE HCL 50 MG TABLET PO SCH (07:42)
[2019-09-18] MEDS: MULTIVITAMINS, THERAPEUTIC TABLET PO SCH (07:42)
[2019-09-18] MEDS: AMOX TR/POT CLAV 875 MG/125 MG TABLET PO SCH ×2 (07:43→19:47)
[2019-09-18 08:18] VITALS: BP 133/77
[2019-09-18 15:32] VITALS: BP 127/63
[2019-09-18 19:47] VITALS: BP 130/76
[2019-09-18] MEDS: OLANZapine 10 MG TABLET PO SCH (19:47)
[2019-09-19 06:06] VITALS: BP 111/67
[2019-09-19] MEDS: DOCUSATE SODIUM 100 MG CAPSULE PO SCH ×2 (08:34→20:27)
[2019-09-19] MEDS: AMOX TR/POT CLAV 875 MG/125 MG TABLET PO SCH ×2 (08:34→20:27)
[2019-09-19] MEDS: SERTRALINE HCL 50 MG TABLET PO SCH (08:34)
[2019-09-19] MEDS: MULTIVITAMINS, THERAPEUTIC TABLET PO SCH (08:34)
[2019-09-19] MEDS: FAMOTIDINE 20 MG TABLET PO SCH (08:34)
[2019-09-19 08:47] VITALS: BP 125/73
[2019-09-19 16:38] VITALS: BP 140/80
[2019-09-19 19:55] VITALS: BP 119/66
[2019-09-19] MEDS: OLANZapine 10 MG TABLET PO SCH (20:27)
[2019-09-20 04:51] VITALS: BP 136/72
[2019-09-20] MEDS: DOCUSATE SODIUM 100 MG CAPSULE PO SCH ×2 (08:04→20:26)
[2019-09-20] MEDS: MULTIVITAMINS, THERAPEUTIC TABLET PO SCH (08:04)
[2019-09-20] MEDS: FAMOTIDINE 20 MG TABLET PO SCH (08:04)
[2019-09-20] MEDS: AMOX TR/POT CLAV 875 MG/125 MG TABLET PO SCH ×2 (08:04→20:26)
[2019-09-20] MEDS: SERTRALINE HCL 50 MG TABLET PO SCH (08:04)
[2019-09-20 08:25] VITALS: BP 103/47
[2019-09-20 15:41] VITALS: BP 135/91
[2019-09-20 20:00] VITALS: BP 111/65
[2019-09-20] MEDS: OLANZapine 10 MG TABLET PO SCH (20:26)
[2019-09-21 04:13] VITALS: BP 121/55
[2019-09-21 08:10] VITALS: BP 122/71
[2019-09-21] MEDS: FAMOTIDINE 20 MG TABLET PO SCH (08:32)
[2019-09-21] MEDS: AMOX TR/POT CLAV 875 MG/125 MG TABLET PO SCH ×2 (08:32→20:49)
[2019-09-21] MEDS: SERTRALINE HCL 50 MG TABLET PO SCH (08:32)
[2019-09-21] MEDS: MULTIVITAMINS, THERAPEUTIC TABLET PO SCH (08:32)
[2019-09-21] MEDS: DOCUSATE SODIUM 100 MG CAPSULE PO SCH ×2 (09:00→20:49)
[2019-09-21] MEDS ORDERED: AMOX1TAB16 PO (13:21)
[2019-09-21] MEDS ORDERED: MULT-723 PO (13:22)
[2019-09-21] MEDS ORDERED: OLAN10TA3 PO (13:23)
[2019-09-21] MEDS ORDERED: SERT50TA12 PO (13:23)
[2019-09-21 17:39] VITALS: BP 124/75
[2019-09-21] MEDS: OLANZapine 10 MG TABLET PO SCH (20:49)
[2019-09-21 20:56] VITALS: BP 122/80
== END 2019-09-21 22:15 | DRG 885 ==
LOC: EMS 18:46 → 6S 20:30
PROVIDERS: ADMIT Internal Medicine; ATTEND Internal Medicine
DX: F25.1 Schizoaffective disorder, depressive type (principal); F23 Brief psychotic disorder; R45.851 Suicidal ideations; Z87.891 Personal history of nicotine dependence; B19.20 Unspecified viral hepatitis C without hepatic coma; F32.9 Major depressive disorder, single episode, unspecified; F15.90 Other stimulant use, unspecified, uncomplicated; Z88.8 Allergy status to other drugs, medicaments and biological substances; F14.90 Cocaine use, unspecified, uncomplicated; F12.90 Cannabis use, unspecified, uncomplicated; Z91.5 Personal history of self-harm; F41.9 Anxiety disorder, unspecified
CPT/HCPCS: 87081; G0480; J3490

== ENCOUNTER 2019-10-31 17:35 | Inpatient (IN) | payer OTHER ==
[~2019-10-31] VITALS: Ht 170.2 cm; Wt 104.6 kg
[~2019-10-31 17:35] MED LIST changes: +AMOX1TAB16 PO; -DIVA-76 PO; -FLUP1TAB8 PO; -LORA10TA7 PO; -MIRT-89 PO; +MULT-723 PO; +OLAN10TA3 PO; -OLAN5TAB2 PO
[2019-10-31] MEDS ORDERED: PERTUSS(ACELL),DIPH,TET VAC/PF 0.5 ML VIAL IM ONE (19:00)
[2019-10-31] MEDS ORDERED: AMOX TR/POT CLAV 875 MG/125 MG TABLET PO ONE (19:00)
[2019-10-31] MEDS ORDERED: HydrOXYzine HCL 50 MG TABLET PO ONE (20:30)
[2019-10-31] MEDS ORDERED: BISACODYL 10 MG RECTAL RECTAL SUPPOSITORY PR PRN (21:15)
[2019-10-31] MEDS ORDERED: ACETAMINOPHEN 325 MG TABLET PO PRN (21:15)
[2019-10-31] MEDS ORDERED: MAGNESIUM HYDROXIDE SUSPENSION 30 ML UDCUP PO PRN (21:15)
[2019-10-31] MEDS ORDERED: ONDANSETRON HCL 4 MG/2 ML VIAL IVP PRN (21:15)
[2019-10-31] MEDS ORDERED: OLANZapine 10 MG TABLET PO ONE (21:30)
[2019-10-31 23:00] VITALS: BP 161/78
[2019-10-31] MEDS: ZOLPIDEM TARTRATE 5 MG TABLET PO PRN (23:28)
[2019-10-31] MEDS: HEPARIN SODIUM,PORCINE 5,000 UNITS/ML VIAL SQ SCH (23:28)
[2019-11-01 01:39] LABS: AMPHET/METH SCREEN,URINE NEGATIVE (NEGATIVE); BARBITURATE SCREEN, URINE NEGATIVE (NEGATIVE); BENZODIAZEPINES SCREEN,URINE NEGATIVE (NEGATIVE); CANNABINOID SCREEN,URINE NEGATIVE (NEGATIVE); COCAINE SCREEN,URINE NEGATIVE (NEGATIVE); METHADONE SCREEN, URINE NEGATIVE (NEGATIVE); OPIATE SCREEN,URINE NEGATIVE (NEGATIVE); PHENCYCLIDINE SCREEN,URINE NEGATIVE (NEGATIVE)
[2019-11-01 05:50] VITALS: BP 133/83
[2019-11-01 08:18] VITALS: BP 127/91
[2019-11-01] MEDS: MULTIVITAMINS WITH IRON TABLET PO SCH (08:55)
[2019-11-01] MEDS: SERTRALINE HCL 50 MG TABLET PO SCH (08:55)
[2019-11-01] MEDS: HEPARIN SODIUM,PORCINE 5,000 UNITS/ML VIAL SQ SCH ×3 (08:55→23:08)
[2019-11-01 15:54] VITALS: BP 149/79
[2019-11-01] MEDS ORDERED: AmLODIPine BESYLATE 5 MG TABLET PO ONE (16:15)
[2019-11-01 19:46] VITALS: BP 125/95
[2019-11-01] MEDS: OLANZapine 10 MG TABLET PO SCH (20:21)
[2019-11-01] MEDS: ZOLPIDEM TARTRATE 5 MG TABLET PO PRN (20:21)
[2019-11-02 05:11] VITALS: BP 114/68
[2019-11-02] MEDS: MULTIVITAMINS WITH IRON TABLET PO SCH (08:15)
[2019-11-02] MEDS: AmLODIPine BESYLATE 5 MG TABLET PO SCH (08:15)
[2019-11-02] MEDS: SERTRALINE HCL 50 MG TABLET PO SCH (08:15)
[2019-11-02] MEDS: HEPARIN SODIUM,PORCINE 5,000 UNITS/ML VIAL SQ SCH ×3 (08:16→23:17)
[2019-11-02 08:24] VITALS: BP 118/62
[2019-11-02 16:42] VITALS: BP 127/81
[2019-11-02] MEDS: OLANZapine 10 MG TABLET PO SCH (21:17)
[2019-11-02] MEDS: ZOLPIDEM TARTRATE 5 MG TABLET PO PRN (23:16)
[2019-11-03 08:22] VITALS: BP 118/69
[2019-11-03] MEDS: MULTIVITAMINS WITH IRON TABLET PO SCH (08:55)
[2019-11-03] MEDS: AmLODIPine BESYLATE 5 MG TABLET PO SCH (08:55)
[2019-11-03] MEDS: HEPARIN SODIUM,PORCINE 5,000 UNITS/ML VIAL SQ SCH ×3 (08:55→23:01)
[2019-11-03] MEDS: SERTRALINE HCL 50 MG TABLET PO SCH (08:55)
[2019-11-03] MEDS ORDERED: RisperiDONE MICROSPHERES 50 MG/2 ML SYRINGE IM SCH (09:00)
[2019-11-03 15:40] VITALS: BP 122/73
[2019-11-03] MEDS: OLANZapine 10 MG TABLET PO SCH (20:14)
[2019-11-03 20:29] VITALS: BP 123/77
[2019-11-03] MEDS: ZOLPIDEM TARTRATE 5 MG TABLET PO PRN (23:13)
[2019-11-04 05:40] VITALS: BP 108/58
[2019-11-04 09:00] VITALS: BP 125/84
[2019-11-04] MEDS: HEPARIN SODIUM,PORCINE 5,000 UNITS/ML VIAL SQ SCH ×2 (09:14→16:09)
[2019-11-04] MEDS: AmLODIPine BESYLATE 5 MG TABLET PO SCH (09:14)
[2019-11-04] MEDS: MULTIVITAMINS WITH IRON TABLET PO SCH (09:14)
[2019-11-04] MEDS: SERTRALINE HCL 50 MG TABLET PO SCH (09:14)
[2019-11-04 16:32] VITALS: BP 129/78
[2019-11-04 20:21] VITALS: BP 145/67
[2019-11-04] MEDS: OLANZapine 10 MG TABLET PO SCH (21:12)
[2019-11-04] MEDS: ZOLPIDEM TARTRATE 5 MG TABLET PO PRN (23:26)
[2019-11-05 04:00] VITALS: BP 136/78
[2019-11-05] MEDS: HEPARIN SODIUM,PORCINE 5,000 UNITS/ML VIAL SQ SCH ×4 (08:00→14:56)
[2019-11-05] MEDS: SERTRALINE HCL 50 MG TABLET PO SCH ×2 (09:00→09:15)
[2019-11-05] MEDS: MULTIVITAMINS WITH IRON TABLET PO SCH ×2 (09:00→09:15)
[2019-11-05] MEDS: AmLODIPine BESYLATE 5 MG TABLET PO SCH ×2 (09:00→09:15)
[2019-11-05 12:24] VITALS: BP 134/78
[2019-11-05 19:53] VITALS: BP 115/57
[2019-11-05] MEDS: OLANZapine 10 MG TABLET PO SCH (21:00)
[2019-11-05] MEDS: PALIPERIDONE 3 MG ER TABLET PO SCH (21:30)
[2019-11-05] MEDS: ZOLPIDEM TARTRATE 5 MG TABLET PO PRN (21:31)
[2019-11-06 07:30] VITALS: BP 121/56
[2019-11-06] MEDS: HEPARIN SODIUM,PORCINE 5,000 UNITS/ML VIAL SQ SCH ×3 (08:20→16:00)
[2019-11-06] MEDS: MULTIVITAMINS WITH IRON TABLET PO SCH (08:20)
[2019-11-06] MEDS: SERTRALINE HCL 50 MG TABLET PO SCH (08:20)
[2019-11-06] MEDS: AmLODIPine BESYLATE 5 MG TABLET PO SCH (12:03)
[2019-11-06] MEDS ORDERED: DiphenhydrAMINE HCL 50 MG/ML VIAL IM ONE ×2 (15:00→18:15)
[2019-11-06] MEDS ORDERED: LORazepam 2 MG/ML VIAL IM ONE ×2 (15:00→18:15)
[2019-11-06] MEDS ORDERED: DiphenhydrAMINE HCL 50 MG/ML VIAL ONE (15:03)
[2019-11-06] MEDS ORDERED: LORazepam 2 MG/ML VIAL ONE (15:03)
[2019-11-06] MEDS ORDERED: HALOPERIDOL LACTATE 5 MG/ML VIAL IM ONE (18:15)
[2019-11-06] MEDS: PALIPERIDONE 3 MG ER TABLET PO SCH (21:00)
[2019-11-06] MEDS: OLANZapine 10 MG TABLET PO SCH (21:00)
[2019-11-07] MEDS: HEPARIN SODIUM,PORCINE 5,000 UNITS/ML VIAL SQ SCH ×3 (08:00→16:00)
[2019-11-07] MEDS: MULTIVITAMINS WITH IRON TABLET PO SCH (08:46)
[2019-11-07] MEDS: SERTRALINE HCL 50 MG TABLET PO SCH (08:46)
[2019-11-07] MEDS: AmLODIPine BESYLATE 5 MG TABLET PO SCH (08:46)
[2019-11-07 09:23] VITALS: BP 120/73
[2019-11-07] MEDS ORDERED: PALI234D IM (15:40)
[2019-11-07 17:13] VITALS: BP 116/58
[2019-11-07 20:13] VITALS: BP 122/76
[2019-11-18] MEDS ORDERED: PALIPERIDONE PALMITATE 234 MG/1.5 ML SYRINGE IM SCH (09:00)
== END 2019-11-07 20:16 | DRG 885 ==
LOC: EMS 17:41 → 6S 19:30
PROVIDERS: ADMIT Hospitalist; ATTEND Hospitalist
DX: F20.0 Paranoid schizophrenia (principal); R45.851 Suicidal ideations; E03.9 Hypothyroidism, unspecified; B19.20 Unspecified viral hepatitis C without hepatic coma; Z87.891 Personal history of nicotine dependence
CPT/HCPCS: 80307; J1200; J1630; J1644; J2060; J2794

== ENCOUNTER 2019-11-11 16:58 | Inpatient (IN) | payer MEDICAID, OTHER ==
[~2019-11-11] VITALS: Ht 167.6 cm; Wt 104.0 kg
[~2019-11-11 16:58] MED LIST changes: -AMOX1TAB16 PO; +PALI234D IM
[2019-11-11] MEDS ORDERED: DiphenhydrAMINE HCL 50 MG/ML VIAL IM ONE (17:30)
[2019-11-11] MEDS ORDERED: LORazepam 2 MG/ML VIAL IM ONE (17:30)
[2019-11-11] MEDS ORDERED: HALOPERIDOL LACTATE 5 MG/ML VIAL IM ONE (17:30)
[2019-11-11] MEDS ORDERED: LORA10TA7 PO (18:39)
[2019-11-11 19:12] LABS: BASOPHILS % (AUTO) 0.3 % (0.0-2.0); EOSINOPHILS % (AUTO) 0.1 % (1.0-6.0); HEMATOCRIT 42.7 % (41-53); HEMOGLOBIN 14.3 g/dL (13.5-17.5); LYMPHOCYTES # (AUTO) 2.5 K/uL (1.0-4.8); LYMPHOCYTES % (AUTO) 20.1 % (22.0-44.0); MEAN CORPUSCULAR HGB CONC 33.5 G/dL (31.0-37.0); MEAN CORPUSCULAR VOLUME 87 fL (80-100); MONOCYTES # (AUTO) 0.9 K/uL (0.1-1.0); MONOCYTES % (AUTO) 7.2 % (2.0-9.0); NEUTROPHILS # (AUTO) 8.9 K/uL (1.8-7.7); NEUTROPHILS % (AUTO) 72.3 % (40.0-70.0); PLATELET COUNT (AUTO) 278 K/uL (150-450); RED BLOOD CELL COUNT(AUTO) 4.93 MIL/uL (4.50-5.90); RED CELL DISTRIBUTION WIDTH 13.1 % (11.5-14.5)
[2019-11-11 19:27] LABS: ANION GAP 5 mmol/L (8-16); CALCIUM, TOTAL 9.3 mg/dL (8.8-10.5); CARBON DIOXIDE 28 mmol/L (22-29); CHLORIDE 102 mmol/L (98-107); CREATININE 1.16 mg/dL (0.60-1.30); GLOMERULAR FILTR. RATE CALC > 60 mL/min (>60); GLUCOSE,RANDOM 97 mg/dL (70-110); POTASSIUM 3.9 mmol/L (3.5-5.1); SODIUM SERUM 135 mmol/L (136-145); UREA NITROGEN, BLOOD 15 mg/dL (7-18)
[2019-11-11 19:33] LABS: ALANINE AMINOTRANSFERASE 95 U/L (12-78); ALBUMIN 3.7 g/dL (3.4-5.0); ALKALINE PHOSPHATASE 140 U/L (46-116); ASPARTATE AMINOTRANSFERASE 50 U/L (15-37); BILIRUBIN,TOTAL 0.5 mg/dL (0.1-1.0); TOTAL PROTEIN, SERUM 7.9 g/dL (6.4-8.2)
[2019-11-12 01:31] VITALS: BP 106/68
[2019-11-12] MEDS ORDERED: MAGNESIUM HYDROXIDE SUSPENSION 30 ML UDCUP PO PRN (06:45)
[2019-11-12] MEDS ORDERED: ALBUTEROL SULFATE HFA 90 MCG/PUFF 8 GM INHALER IH PRN (06:45)
[2019-11-12] MEDS ORDERED: BENZOCAINE/MENTHOL LOZENGE MM PRN (06:45)
[2019-11-12] MEDS ORDERED: DOCUSATE SODIUM 100 MG CAPSULE PO PRN (06:45)
[2019-11-12] MEDS ORDERED: ONDANSETRON HCL 4 MG TABLET PO PRN (06:45)
[2019-11-12] MEDS ORDERED: IBUPROFEN 600 MG TABLET PO PRN (06:45)
[2019-11-12] MEDS ORDERED: BACITRACIN 28.4 GM OINTMENT TP PRN (06:45)
[2019-11-12] MEDS ORDERED: MAG HYDROX/AL HYDROX/SIMETH ES 30 ML SUSPENSION UDCUP PO PRN (06:45)
[2019-11-12] MEDS ORDERED: LOPERAMIDE HCL 2 MG CAPSULE PO PRN (06:45)
[2019-11-12] MEDS ORDERED: ACETAMINOPHEN 325 MG TABLET PO PRN (06:45)
[2019-11-12] MEDS ORDERED: LORATADINE 10 MG TABLET PO PRN (06:45)
[2019-11-12] MEDS ORDERED: PETROLATUM,WHITE 28 GM JELLY TP PRN (06:45)
[2019-11-12] MEDS ORDERED: OMEPRAZOLE 20 MG CAPSULE PO PRN (06:45)
[2019-11-12] MEDS ORDERED: CloNIDine HCL 0.1 MG TABLET PO PRN (06:45)
[2019-11-12 08:15] LABS: CHOL/HDL RATIO 6.1 (4.2-7.3)
[2019-11-12 08:23] VITALS: BP 109/63
[2019-11-12 16:03] VITALS: BP 120/78
[2019-11-12] MEDS: OLANZapine 5 MG TABLET PO PRN (20:06)
[2019-11-12] MEDS: LORazepam 2 MG TABLET PO PRN (20:06)
[2019-11-13 04:05] VITALS: BP 110/80
[2019-11-13 08:06] VITALS: BP 113/70
[2019-11-13 16:01] VITALS: BP 103/64
[2019-11-13] MEDS: LORazepam 2 MG TABLET PO PRN ×2 (17:57→22:36)
[2019-11-13] MEDS: OLANZapine 5 MG TABLET PO PRN (20:43)
[2019-11-14 06:00] VITALS: BP 109/72
[2019-11-14 08:01] VITALS: BP 106/59
[2019-11-14] MEDS: LORazepam 2 MG TABLET PO PRN ×2 (16:02→22:02)
[2019-11-14] MEDS: OLANZapine 5 MG TABLET PO PRN (16:02)
[2019-11-14 16:06] VITALS: BP 136/80
[2019-11-14] MEDS: ZOLPIDEM TARTRATE 10 MG TABLET PO PRN (22:02)
[2019-11-15 05:54] VITALS: BP 122/79
[2019-11-15 16:03] VITALS: BP 122/60
[2019-11-15] MEDS: OLANZapine 5 MG TABLET PO PRN (17:12)
[2019-11-15] MEDS: LORazepam 2 MG TABLET PO PRN ×2 (17:12→21:12)
[2019-11-15] MEDS: ZOLPIDEM TARTRATE 10 MG TABLET PO PRN (21:04)
[2019-11-16 06:24] VITALS: BP 110/62
[2019-11-16] MEDS: OMEGA-3/DHA/EPA/FISH OIL 1,000 MG CAPSULE PO SCH (09:00)
[2019-11-16 16:01] VITALS: BP 107/60
[2019-11-16] MEDS: OLANZapine 5 MG TABLET PO PRN (16:08)
[2019-11-16] MEDS: LORazepam 2 MG TABLET PO PRN ×2 (16:08→20:19)
[2019-11-16] MEDS: ZOLPIDEM TARTRATE 10 MG TABLET PO PRN (20:19)
[2019-11-16] MEDS: SIMVASTATIN 10 MG TABLET PO SCH (20:19)
[2019-11-17 04:11] VITALS: BP 112/64
[2019-11-17] MEDS: OMEGA-3/DHA/EPA/FISH OIL 1,000 MG CAPSULE PO SCH (08:31)
[2019-11-17] MEDS ORDERED: MULT-729 PO (15:19)
[2019-11-17 16:03] VITALS: BP 109/71
[2019-11-17] MEDS: SIMVASTATIN 10 MG TABLET PO SCH (20:34)
[2019-11-17] MEDS: OLANZapine 5 MG TABLET PO PRN (20:43)
[2019-11-17] MEDS: LORazepam 2 MG TABLET PO PRN (20:43)
[2019-11-17] MEDS: ZOLPIDEM TARTRATE 10 MG TABLET PO PRN (22:43)
[2019-11-18 01:07] VITALS: BP 120/81
[2019-11-18 08:00] VITALS: BP 141/87
[2019-11-18] MEDS: OMEGA-3/DHA/EPA/FISH OIL 1,000 MG CAPSULE PO SCH (08:10)
[2019-11-18 08:22] LABS: HEMATOCRIT 46.1 % (41-53); HEMOGLOBIN 15.6 g/dL (13.5-17.5); MEAN CORPUSCULAR HEMOGLOBIN 29.5 pg (26.0-34.0); MEAN CORPUSCULAR HGB CONC 33.8 G/dL (31.0-37.0); MEAN CORPUSCULAR VOLUME 87 fL (80-100); PLATELET COUNT (AUTO) 281 K/uL (150-450); RED BLOOD CELL COUNT(AUTO) 5.27 MIL/uL (4.50-5.90); RED CELL DISTRIBUTION WIDTH 13.2 % (11.5-14.5)
[2019-11-18 08:46] LABS: CALCIUM, TOTAL 9.2 mg/dL (8.8-10.5); CREATININE 1.42 mg/dL (0.60-1.30); MAGNESIUM 1.9 mg/dL (1.80-2.40); PHOSPHORUS 3.9 mg/dL (2.5-4.9); POTASSIUM 3.5 mmol/L (3.5-5.1)
[2019-11-18] MEDS ORDERED: MULTIVITAMINS WITH MINERALS, THERAPEUTIC TABLET PO SCH (09:00)
[2019-11-18 09:01] LABS: BAND NEUTROPHILS % (MANUAL) 2 % (0-5); EOSINOPHILS % (MANUAL) 2 % (1-6); LYMPHOCYTES % (MANUAL) 21 % (22-44); MONOCYTES % (MANUAL) 3 % (2-9); SEGMENTED NEUTROPHILS % 72 % (40-70)
[2019-11-18] MEDS ORDERED: RISPC50 IM (15:35)
[2019-11-18] MEDS ORDERED: SIMV-259 PO (15:35)
[2019-11-18] MEDS ORDERED: RisperiDONE MICROSPHERES 50 MG/2 ML SYRINGE IM SCH (16:00)
== END 2019-11-18 16:00 | disposition home or self-care (01) | DRG 885 ==
LOC: EMS 16:58 → B3A 21:44 → UNDOADMIN 22:30
PROVIDERS: ADMIT Psychiatry & Neurology Psychiatry; ATTEND Psychiatry & Neurology Psychiatry
DX: F20.0 Paranoid schizophrenia (principal); B19.20 Unspecified viral hepatitis C without hepatic coma; E03.9 Hypothyroidism, unspecified; F15.90 Other stimulant use, unspecified, uncomplicated; F32.9 Major depressive disorder, single episode, unspecified; F41.9 Anxiety disorder, unspecified; Z88.8 Allergy status to other drugs, medicaments and biological substances; E78.00 Pure hypercholesterolemia, unspecified; S00.81XA Abrasion of other part of head, initial encounter; X58.XXXA Exposure to other specified factors, initial encounter; Y93.89 Activity, other specified; Y92.89 Other specified places as the place of occurrence of the external cause; Y99.8 Other external cause status; F17.200 Nicotine dependence, unspecified, uncomplicated; K59.00 Constipation, unspecified; G47.00 Insomnia, unspecified
CPT/HCPCS: 83735; 84100; 85007; 99291; G0480; J1200; J1630; J2060; J2794

== ENCOUNTER 2019-11-26 07:33 | Inpatient (IN) | payer MEDICAID ==
[~2019-11-26] VITALS: Ht 177.8 cm; Wt 109.1 kg
[~2019-11-26 07:33] MED LIST changes: -MULT-723 PO; -OLAN10TA3 PO; -PALI234D IM; +RISPC50 IM; -SERT50TA12 PO; +SIMV-259 PO
[2019-11-26 08:11] LABS: BASOPHILS % (AUTO) 0.3 % (0.0-2.0); EOSINOPHILS % (AUTO) 0.3 % (1.0-6.0); HEMATOCRIT 40.7 % (41-53); HEMOGLOBIN 13.9 g/dL (13.5-17.5); LYMPHOCYTES # (AUTO) 2.3 K/uL (1.0-4.8); LYMPHOCYTES % (AUTO) 21.4 % (22.0-44.0); MEAN CORPUSCULAR HEMOGLOBIN 29.8 pg (26.0-34.0); MEAN CORPUSCULAR HGB CONC 34.2 G/dL (31.0-37.0); MEAN CORPUSCULAR VOLUME 87 fL (80-100); MONOCYTES # (AUTO) 0.8 K/uL (0.1-1.0); MONOCYTES % (AUTO) 7.1 % (2.0-9.0); NEUTROPHILS # (AUTO) 7.6 K/uL (1.8-7.7); NEUTROPHILS % (AUTO) 70.9 % (40.0-70.0); PLATELET COUNT (AUTO) 257 K/uL (150-450); RED BLOOD CELL COUNT(AUTO) 4.67 MIL/uL (4.50-5.90); RED CELL DISTRIBUTION WIDTH 13.2 % (11.5-14.5)
[2019-11-26 08:22] LABS: ANION GAP 8 mmol/L (8-16); CARBON DIOXIDE 27 mmol/L (22-29); CHLORIDE 102 mmol/L (98-107); CREATININE 1.41 mg/dL (0.60-1.30); GLOMERULAR FILTR. RATE CALC 58 mL/min (>60); GLUCOSE,RANDOM 116 mg/dL (70-110); POTASSIUM 3.5 mmol/L (3.5-5.1); SODIUM SERUM 137 mmol/L (136-145); UREA NITROGEN, BLOOD 14 mg/dL (7-18)
[2019-11-26 08:28] LABS: ALANINE AMINOTRANSFERASE 107 U/L (12-78); ALKALINE PHOSPHATASE 124 U/L (46-116); ASPARTATE AMINOTRANSFERASE 67 U/L (15-37); BILIRUBIN,TOTAL 0.6 mg/dL (0.1-1.0); TOTAL PROTEIN, SERUM 8.2 g/dL (6.4-8.2)
[2019-11-26] MEDS: OLANZapine 5 MG RAPDIS TABLET PO PRN (09:39)
[2019-11-26] MEDS: LORazepam 2 MG TABLET PO PRN (09:39)
[2019-11-26] MEDS ORDERED: DiphenhydrAMINE HCL 50 MG/ML VIAL IM ONE ×2 (10:00→13:30)
[2019-11-26] MEDS ORDERED: LORazepam 2 MG/ML VIAL IM ONE ×2 (10:00→13:30)
[2019-11-26] MEDS ORDERED: HALOPERIDOL LACTATE 5 MG/ML VIAL ONE (12:33)
[2019-11-26] MEDS ORDERED: HALOPERIDOL LACTATE 5 MG/ML VIAL IM ONE (13:30)
[2019-11-26] MEDS ORDERED: ALBUTEROL SULFATE HFA 90 MCG/PUFF 8 GM INHALER IH PRN (15:45)
[2019-11-26] MEDS ORDERED: ONDANSETRON HCL 4 MG TABLET PO PRN (15:45)
[2019-11-26] MEDS ORDERED: PETROLATUM,WHITE 28 GM JELLY TP PRN (15:45)
[2019-11-26] MEDS ORDERED: BENZOCAINE/MENTHOL LOZENGE PO PRN (15:45)
[2019-11-26] MEDS ORDERED: OMEPRAZOLE 20 MG CAPSULE PO PRN (15:45)
[2019-11-26] MEDS ORDERED: DOCUSATE SODIUM 100 MG CAPSULE PO PRN (15:45)
[2019-11-26] MEDS ORDERED: LOPERAMIDE HCL 2 MG CAPSULE PO PRN (15:45)
[2019-11-26] MEDS ORDERED: MAG HYDROX/AL HYDROX/SIMETH ES 30 ML SUSPENSION UDCUP PO PRN (15:45)
[2019-11-26] MEDS ORDERED: ACETAMINOPHEN 325 MG TABLET PO PRN (15:45)
[2019-11-26] MEDS ORDERED: IBUPROFEN 600 MG TABLET PO PRN (15:45)
[2019-11-26] MEDS ORDERED: BACITRACIN 28.4 GM OINTMENT TP PRN (15:45)
[2019-11-26] MEDS ORDERED: MAGNESIUM HYDROXIDE SUSPENSION 30 ML UDCUP PO PRN (15:45)
[2019-11-26] MEDS ORDERED: CloNIDine HCL 0.1 MG TABLET PO PRN (15:45)
[2019-11-26 16:08] VITALS: BP 118/64
[2019-11-26] MEDS: SIMVASTATIN 10 MG TABLET PO SCH (21:00)
[2019-11-27] MEDS: LORazepam 2 MG TABLET PO PRN ×2 (08:50→13:09)
[2019-11-27 17:42] VITALS: BP 155/95
[2019-11-27] MEDS: SIMVASTATIN 10 MG TABLET PO SCH (21:01)
[2019-11-27] MEDS: ZOLPIDEM TARTRATE 10 MG TABLET PO PRN (22:05)
[2019-11-28 08:13] VITALS: BP 122/80
[2019-11-28] MEDS: LORazepam 2 MG TABLET PO PRN ×2 (09:37→14:58)
[2019-11-28] MEDS: OLANZapine 5 MG RAPDIS TABLET PO PRN (14:58)
[2019-11-28 16:17] VITALS: BP 132/81
[2019-11-28] MEDS: SIMVASTATIN 10 MG TABLET PO SCH (20:17)
[2019-11-29 06:51] VITALS: BP 136/90
[2019-11-29] MEDS: OLANZapine 5 MG RAPDIS TABLET PO PRN ×2 (08:38→21:30)
[2019-11-29] MEDS: LORazepam 2 MG TABLET PO PRN ×2 (08:38→21:30)
[2019-11-29 09:24] VITALS: BP 123/64
[2019-11-29 16:14] VITALS: BP 113/65
[2019-11-29] MEDS: SIMVASTATIN 10 MG TABLET PO SCH (20:12)
[2019-11-29] MEDS: ZOLPIDEM TARTRATE 10 MG TABLET PO PRN (21:30)
[2019-11-30 03:21] VITALS: BP 112/67
[2019-11-30 08:40] VITALS: BP 127/81
[2019-11-30 16:11] VITALS: BP 126/74
[2019-11-30] MEDS: ZOLPIDEM TARTRATE 10 MG TABLET PO PRN (20:15)
[2019-11-30] MEDS: LORazepam 2 MG TABLET PO PRN (20:15)
[2019-11-30] MEDS: SIMVASTATIN 10 MG TABLET PO SCH (20:15)
[2019-12-01] MEDS ORDERED: RisperiDONE MICROSPHERES 50 MG/2 ML SYRINGE IM ONE (06:00)
[2019-12-01 06:19] VITALS: BP 123/62
[2019-12-01] MEDS ORDERED: SIMV-259 PO (06:38)
[2019-12-01] MEDS ORDERED: RISPC50 IM (06:41)
[2019-12-01 08:30] VITALS: BP 127/80
== END 2019-12-01 10:07 | disposition home or self-care (01) | DRG 750 ==
LOC: EMS 07:34 → B3A 09:01 → UNDOADMIN 12:01 → B3A 12:01
PROVIDERS: ADMIT Psychiatry & Neurology Psychiatry; ATTEND Psychiatry & Neurology Psychiatry
DX: F25.9 Schizoaffective disorder, unspecified (principal); N17.9 Acute kidney failure, unspecified; R45.851 Suicidal ideations; F31.9 Bipolar disorder, unspecified; E03.9 Hypothyroidism, unspecified; Z78.1 Physical restraint status; F15.90 Other stimulant use, unspecified, uncomplicated; F41.9 Anxiety disorder, unspecified; B18.2 Chronic viral hepatitis C; E78.00 Pure hypercholesterolemia, unspecified; K59.00 Constipation, unspecified; G47.00 Insomnia, unspecified; E66.9 Obesity, unspecified; Z68.34 Body mass index [BMI] 34.0-34.9, adult; Z72.0 Tobacco use
CPT/HCPCS: G0480; J1200; J1630; J2060; J2794